=== PATIENT | male | born 1995 | race African-American/Black ===

== ENCOUNTER 2017-06-22 10:56 | Emergency (ER) | payer SELFPAY, OTHER | END 2017-06-22 11:49 | disposition home or self-care (01) | LOC: NEPD 10:56 | DX: J06.9 Acute upper respiratory infection, unspecified (principal) | CPT/HCPCS: 99282 ==

== ENCOUNTER 2017-07-06 10:31 | Emergency (ER) | payer SELFPAY ==
[~2017-07-06] VITALS: Ht 185.4 cm; Wt 115.0 kg
[2017-07-06 10:33] VITALS: BP 124/55; PULSE 55; RESP 18; TEMP 97.9; O2SAT 99
[2017-07-06] MEDS ORDERED: SODIUM CHLOR 0.9% 1000 ML INJ 1,000 ML IV SCH (10:59)
[2017-07-06] MEDS ORDERED: SODIUM CHLORIDE 0.9% FLUSH 10 ML FLUSH IV FLUSH PRN ×2 (11:00→12:15)
[2017-07-06] MEDS ORDERED: ONDANSETRON HCL 4 MG/2 ML VIAL IVP ONE (11:00)
[2017-07-06 11:16] LABS: AUTOMATED NEUTROPHIL # 6.5 TH/MM3 (1.8-7.7); BASOPHIL # 0.1 TH/MM3 (0-0.2); BASOPHIL % 0.7 % (0.0-2.0); EOSINOPHIL # 0.1 TH/MM3 (0-0.4); EOSINOPHIL % 0.9 % (0.0-4.0); HEMATOCRIT 43.9 % (39.0-51.0); HEMOGLOBIN 14.7 GM/DL (13.0-17.0); LYMPH % 3.1 % (9.0-44.0); LYMPHOCYTE # 0.2 TH/MM3 (1.0-4.8); MEAN CELL VOLUME 77.3 FL (80.0-100.0); MEAN CORPUSCULAR HGB CONC 33.6 % (32.0-36.0); MEAN PLATELET VOLUME 9.2 FL (7.0-11.0); MONO % 5.5 % (0.0-8.0); MONOCYTE # 0.4 TH/MM3 (0-0.9); NEUT % 89.8 % (16.0-70.0); PLATELET COUNT 147 TH/MM3 (150-450); RED BLOOD COUNT 5.68 MIL/MM3 (4.50-5.90); RED CELL DISTRIBUTION WIDTH 14.5 % (11.6-17.2); WHITE BLOOD COUNT 7.3 TH/MM3 (4.0-11.0)
[2017-07-06 11:31] VITALS: RESP 18; O2SAT 98
[2017-07-06 11:32] LABS: AST (GOT) 37 U/L (15-37); BICARBONATE 30.2 MEQ/L (21.0-32.0); BLOOD UREA NITROGEN 14 MG/DL (7-18); CALCIUM 9.2 MG/DL (8.5-10.1); CHLORIDE 106 MEQ/L (98-107); CREATININE 1.22 MG/DL (0.60-1.30); GLOMERULAR FILTRATION RATE 91 ML/MIN (>89); GLUCOSE,RANDOM 93 MG/DL (74-106); SODIUM (NA) 139 MEQ/L (136-145)
[2017-07-06 11:33] LABS: ALT (GPT) 60 U/L (12-78)
[2017-07-06 11:36] LABS: ALKALINE PHOSPHATASE 109 U/L (45-117); TOTAL BILIRUBIN ADULT 0.3 MG/DL (0.2-1.0); TOTAL PROTEIN 7.6 GM/DL (6.4-8.2)
--- NOTE | 2017-07-06 11:49 | PD ---
HPI Chief Complaint: GI Complaint Time Seen by Provider: 10:48 Travel History International Travel<30 days: No Contact w/Intl Traveler<30days: No Traveled to known affect area: No History of Present Illness HPI 22-year-old -Indian male presents emergency department with history of sudden onset nausea and vomiting around midnight last night. Patient denies significant abdominal pain, or diarrhea. He has had the chills, and low-grade fevers. Patient denies upper respiratory symptoms such as headache, sore throat , or congestion. He has no chest pain or congestion there. Last time he threw up was approximately 30 minutes prior to arriving here. He is still urinating and has no urinary symptoms. He has no known drug allergies PFSH Past Medical History Autoimmune Disease: No Gastrointestinal Disorders: No Genitourinary: No Neurologic: No Respiratory: No Immunizations Current: Yes Past Surgical History Other Surgery: No Social History Alcohol Use: No Tobacco Use: No Substance Use: No Allergies-Medications (Allergen,Severity, Reaction): Coded Allergies: No Known Allergies (Verified Adverse Reaction, Unknown, 06/22/17) Reported Meds & Prescriptions Reported Meds & Active Scripts Active Bentyl (Dicyclomine HCl) 10 Mg Cap 10 Mg PO QID Zofran (Ondansetron HCl) 4 Mg Tab 4 Mg PO Q6HR PRN Review of Systems Except as stated in HPI: all other systems reviewed are Neg General / Constitutional: Positive: Fever, Chills Eyes: No: Visual changes HENT: No: Headaches Cardiovascular: No: Chest Pain or Discomfort Respiratory: No: Shortness of Breath Gastrointestinal: Positive: Nausea, Vomiting, Loss of Appetite, No: Diarrhea, Abdominal Pain, Indigestion, Dysphagia Genitourinary: No: Dysuria Musculoskeletal: No: Pain Skin: No Rash Neurologic: No: Weakness Psychiatric: No: Depression Endocrine: No: Polydipsia Hematologic/Lymphatic: No: Easy Bruising Physical Exam Narrative GENERAL: Patient appears mildly ill but not septic. SKIN: Warm and dry. Normal color. Normal turgor HEAD: Atraumatic. Normocephalic. EYES: Pupils equal and round. No scleral icterus. No injection or drainage. ENT: No nasal bleeding or discharge. Mucous membranes pink and moist. TMs are clear bilaterally. No sinus tenderness. No postnasal drip. Pharynx is clear. Airways patent. NECK: Trachea midline. Supple and nontender CARDIOVASCULAR: Regular rate and rhythm. RESPIRATORY: No accessory muscle use. Clear to auscultation. Breath sounds equal bilaterally. GASTROINTESTINAL: Abdomen soft, mildly diffusely tender, nondistended. No point tenderness or rebound. Hepatic and splenic margins not palpable. No CVA tenderness. MUSCULOSKELETAL: Extremities without clubbing, cyanosis, or edema. No obvious deformities. NEUROLOGICAL: Awake and alert. No obvious cranial nerve deficits. Motor grossly within normal limits. Five out of 5 muscle strength in the arms and legs. Normal speech. PSYCHIATRIC: Appropriate mood and affect; insight and judgment normal. Data Data Last Documented VS Vital Signs Date Time Temp Pulse Resp B/P (MAP) Pulse Ox O2 Delivery O2 Flow Rate FiO2 07/06/17 11:32 18 07/06/17 11:31 98 Room Air 07/06/17 10:33 97.9 55 Orders Orders Complete Blood Count With Diff (07/06/17 10:59) Comprehensive Metabolic Panel (07/06/17 10:59) Iv Access Insert/Monitor (07/06/17 10:59) Ecg Monitoring (07/06/17 10:59) Oximetry (07/06/17 10:59) NPO (07/06/17 10:59) Ondansetron Inj (Zofran Inj) (07/06/17 11:00) Sodium Chlor 0.9% 1000 Ml Inj (Ns 1000 M (07/06/17 10:59) Sodium Chloride 0.9% Flush (Ns Flush) (07/06/17 11:00) Influenzae A/B Antigen (07/06/17 11:45) Sodium Chloride 0.9% Flush (Ns Flush) (07/06/17 12:15) Famotidine Inj (Pepcid Inj) (07/06/17 12:15) Dicyclomine Inj (Bentyl Inj) (07/06/17 12:15) Ketorolac Inj (Toradol Inj) (07/06/17 12:15) Labs Laboratory Tests Test 07/06/17 11:10 White Blood Count 7.3 TH/MM3 Red Blood Count 5.68 MIL/MM3 Hemoglobin 14.7 GM/DL Hematocrit 43.9 % Mean Corpuscular Volume 77.3 FL Mean Corpuscular Hemoglobin 26.0 PG Mean Corpuscular Hemoglobin Concent 33.6 % Red Cell Distribution Width 14.5 % Platelet Count 147 TH/MM3 Mean Platelet Volume 9.2 FL Neutrophils (%) (Auto) 89.8 % Lymphocytes (%) (Auto) 3.1 % Monocytes (%) (Auto) 5.5 % Eosinophils (%) (Auto) 0.9 % Basophils (%) (Auto) 0.7 % Neutrophils # (Auto) 6.5 TH/MM3 Lymphocytes # (Auto) 0.2 TH/MM3 Monocytes # (Auto) 0.4 TH/MM3 Eosinophils # (Auto) 0.1 TH/MM3 Basophils # (Auto) 0.1 TH/MM3 CBC Comment DIFF FINAL Differential Comment Blood Urea Nitrogen 14 MG/DL Creatinine 1.22 MG/DL Random Glucose 93 MG/DL Total Protein 7.6 GM/DL Albumin 4.0 GM/DL Calcium Level 9.2 MG/DL Alkaline Phosphatase 109 U/L Aspartate Amino Transf (AST/SGOT) 37 U/L Alanine Aminotransferase (ALT/SGPT) 60 U/L Total Bilirubin 0.3 MG/DL Sodium Level 139 MEQ/L Potassium Level 4.4 MEQ/L Chloride Level 106 MEQ/L Carbon Dioxide Level 30.2 MEQ/L Anion Gap 3 MEQ/L Estimat Glomerular Filtration Rate 91 ML/MIN [facility] Medical Decision Making Medical Screen Exam Complete: Yes Emergency Medical Condition: Yes Differential Diagnosis Gastroenteritis. Influenza. Food poisoning. Nausea and vomiting Narrative Course Patient is medically stable at time of exam. Labs ordered including CBC, CMP, and rapid influenza. IV access is obtained the patient was given 1000 mL normal saline bolus, 4 mg Zofran IV. CBC is unremarkable. CMP is unremarkable. Rapid influenza is negative. Patient is given 20 mg Pepcid IV as well as 20 mg of IM Bentyl. Patient eloped prior to discharge. Diagnosis Primary Impression: Gastroenteritis Patient Instructions: Abdominal Pain (ED), Acute Nausea and Vomiting (ED), General Instructions Med/Other Pt SpecificInfo: Prescription(s) given Scripts Dicyclomine (Bentyl) 10 Mg Cap 10 MG PO QID for Bowel Management, #20 CAP 0 Refills Prov: Shannan Grullon MD 07/06/17 Ondansetron (Zofran) 4 Mg Tab 4 MG PO Q6HR Y for NAUSEA OR VOMITING, #20 TAB 0 Refills Prov: Shannan Grullon MD 07/06/17 Disposition: 07 AGAINST MEDICAL ADVICE Condition: Stable Tj Escobar Jul 06, 2017 11:48
[2017-07-06] MEDS ORDERED: KETOROLAC TROMETHAMINE 30 MG/ML (IVP) VIAL IVP ONE (12:15)
[2017-07-06] MEDS ORDERED: FAMOTIDINE 20 MG/2 ML VIAL IV PUSH ONE (12:15)
[2017-07-06] MEDS ORDERED: DICYCLOMINE HCL 20 MG/2 ML VIAL IM ONE (12:15)
[2017-07-06] MEDS ORDERED: DICY10 PO (12:55)
[2017-07-06] MEDS ORDERED: ZOFR4TAB PO (12:55)
== END 2017-07-06 14:58 | disposition left against medical advice (07) ==
LOC: NEPD 10:31
DX: K52.9 Noninfective gastroenteritis and colitis, unspecified (principal)
CPT/HCPCS: 80053; 85025; 87804; 96372; 96374; 96375; 99284; J0500; J1885; J2405; J7030